=== PATIENT | female | born 1990 ===

== ENCOUNTER 2021-09-01 14:01 | Emergency (ER) | payer SELFPAY ==
[2021-09-01 14:13] VITALS: BP 152/108
--- NOTE | 2021-09-01 15:32 | XRay Report ---
CHEST 2 VIEWS INDICATION / CLINICAL INFORMATION: Chest Pain. COMPARISON: None available. FINDINGS: SUPPORT DEVICES: None. HEART / MEDIASTINUM: No significant abnormality. LUNGS / PLEURA: No significant pulmonary or pleural abnormality. No pneumothorax. ADDITIONAL FINDINGS: No significant additional findings. IMPRESSION: 1. No acute findings. Signer Name: Dago Dumont MD Signed: 09/01/2021 3:27 PM Workstation Name: [id number]
[2021-09-01 16:22] LABS: Basophils % (Auto) 0.2 % (0.0-1.8); Eosinophils % (Auto) 0.4 % (0.0-4.3); Lymphocytes # (Auto) 2.5 K/mm3 (1.2-5.4); Lymphocytes % (Auto) 25.7 % (13.4-35.0); Mean Corpuscular HGB Conc 32 % (30-34); Mean Corpuscular Volume 89 fl (79-97); Monocytes # (Auto) 0.7 K/mm3 (0.0-0.8); Monocytes % (Auto) 7.2 % (0.0-7.3); Platelet Count 268 K/mm3 (140-440); Red Blood Count 3.84 M/mm3 (3.65-5.03); Red Cell Distribution Width 13.5 % (13.2-15.2)
[2021-09-01 16:44] LABS: Alanine Aminotransferase 6 units/L (7-56); Albumin 4.5 g/dL (3.9-5); Blood Urea Nitrogen 14 mg/dL (7-17); Calcium 9.6 mg/dL (8.4-10.2); Hemolysis Index 1
[2021-09-01 16:51] LABS: BUN/Creatinine Ratio 23
--- NOTE | 2021-09-02 13:18 | Electrocardiograph Report ---
[facility] Test Date: 2021-09-01 Test Time: 14:17:34 Pat Name: VERITO MEDINA Department: Room: Gender: F Heat Treat Operator: GP : 1990 Requested By: LUCA ZAMBRANO Order Number: [id number] Reading MD: Srinivas Keith Measurements Intervals [place] Rate: 88 P: 37 HI: 199 QRS: 6 QRSD: 79 T: 8 QT: 335 QTc: 405 Interpretive Statements Sinus rhythm No previous ECG available for comparison Electronically Signed On 09-02-2021 13:17:55 EDT by Srinivas Keith
== END 2021-09-01 20:00 | disposition left against medical advice (07) ==
LOC: ED 14:01
DX: R07.89 Other chest pain (principal); Z53.21 Procedure and treatment not carried out due to patient leaving prior to being seen by health care provider
CPT/HCPCS: 36415; 71046; 80053; 84484; 85025; 93005